=== PATIENT | male | born 1995 | race Two or more races ===

== ENCOUNTER 2017-03-03 17:06 | Emergency (ER) | payer MEDICAID ==
[~2017-03-03] VITALS: Ht 177.8 cm; Wt 74.8 kg
[2017-03-03] MEDS ORDERED: ACETAMINOPHEN 325 MG TAB PO ONE (17:15)
[2017-03-03 17:19] VITALS: BP 144/90
== END 2017-03-03 20:27 | disposition left against medical advice (07) ==
LOC: ER 17:06
DX: R50.9 Fever, unspecified (principal); Z53.21 Procedure and treatment not carried out due to patient leaving prior to being seen by health care provider
CPT/HCPCS: 71046